=== PATIENT | male | born 1950 | race Caucasian/White ===

== ENCOUNTER 2017-12-25 10:44 | Observation (INO) | payer BC, MEDICARE ==
[2017-12-25] MEDS ORDERED: Loratadine 10 MG TAB PO PRN (13:41)
[2017-12-25] MEDS ORDERED: Senokot 8.6 MG TAB PO PRN (13:41)
[2017-12-25] MEDS ORDERED: Artificial Tear Sol 15 ML BOT EA EYE PRN (13:41)
[2017-12-25] MEDS ORDERED: Chloraseptic Spray 180 ml Bottle PO PRN (13:41)
[2017-12-25] MEDS ORDERED: hydrALAZINE 20 MG/ML VIAL SLOW IVP PRN (13:41)
[2017-12-25] MEDS ORDERED: Diabetic Tussin 200 MG/10 ML UDCUP PO PRN (13:41)
[2017-12-25] MEDS ORDERED: Eucerin (Mineral Oil/Petrolatum,White) 30 gm Jar TOP PRN (13:41)
[2017-12-25] MEDS ORDERED: HYDROcodone/Acetaminophen 5/325 mg Tablet PO PRN (13:41)
[2017-12-25] MEDS ORDERED: Zolpidem Tartrate 5 MG TAB PO PRN (13:41)
[2017-12-25] MEDS ORDERED: Ondansetron ODT 4 MG TAB PO PRN (13:41)
[2017-12-25] MEDS ORDERED: Mag-Al 1200 mg/1200 mg/30 ML UDCUP PO PRN (13:41)
[2017-12-25] MEDS ORDERED: Sodium Chloride 0.65% Nasal 44 ML BOT EA NARE PRN (13:41)
[2017-12-25] MEDS ORDERED: Milk Of Magnesia 30 ML UDCUP PO PRN (13:41)
[2017-12-25] MEDS ORDERED: Loperamide HCl 2 MG CAP PO PRN (13:41)
[2017-12-25] MEDS ORDERED: Ondansetron HCl/PF 4 MG/2 ML Vial IVP PRN (13:41)
[2017-12-25] MEDS ORDERED: Indomethacin 25 mg Capsule PO PRN (13:51)
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
[2017-12-25 16:37] VITALS: BMI 28.0
[2017-12-25] MEDS: Acetaminophen 325 MG TAB PO PRN ×2 (17:46→22:39)
[2017-12-25 17:51] LABS: Bilirubin Negative (Negative); Blood, Urine Negative (Negative); Clarity CLEAR (Clear); Glucose, Urine (Dipstick) Negative (Negative); Leukocyte Negative (Negative); Nitrite Negative (Negative); Protein, Urine (Dipstick) Negative (Neg-Trace); Specific Gravity, Urine 1.007 (1.002-1.036); Urobilinogen 0.2 mg/dL (0.2-1.0); pH, Urine 5.5 (5.0-9.0)
[2017-12-25 17:54] LABS: Bacteria/HPF None Seen HPF (None Seen); Hyaline Casts/LPF 0-3 HYALINE CAST LPF (0-3 Hyaline); RBC/HPF 0-3 HPF (0-3); Squamous Epithelial None Seen HPF (0-3); WBC/HPF None Seen HPF (0-3)
[2017-12-25 18:00] LABS: Amphetamine Not Detected (NotDetected); Barbiturates Screen Not Detected (NotDetected); Benzodiazepine Screen Not Detected (NotDetected); Cocaine Metabolite Screen Not Detected (NotDetected); Medtox Control Line Valid? VALID (VALID); Medtox Reader # READER 1; Methadone Not Detected (NotDetected); Methamphetamine Not Detected (NotDetected); Opiate Screen Not Detected (NotDetected); Oxycodone Screen Not Detected (NotDetected); Phencyclidine (PCP) Not Detected (NotDetected); THC/Cannabinoid Screen Not Detected (NotDetected); Tricyclic Screen Not Detected (NotDetected)
--- NOTE | 2017-12-25 19:17 | MRI ---
MRI OF BRAIN WITHOUT CONTRAST 12/25/17 Multiplanar and multisequential imaging of the brain obtained. INDICATIONS: TIA. Correlation made to CT brain done earlier today. Ventricles upper normal size. There is no evidence of restricted diffusion. No evidence of acute infa rct. No mass or edema. There are white matter hypointensities suggesting mild chronic ischemic white matter change. No evidence of hemorrhage. The visualized intracranial internal carotid arteries as well as proximal cerebral arteries show flow voids. Basilar artery appears patent. IMPRESSION: No acute process identified. No evidence of acute infarct. POS: YEIMY
[2017-12-25] MEDS ORDERED: Atorvastatin Calcium 40 MG TAB PO SCH (21:00)
[2017-12-25] MEDS: Famotidine 20 MG TAB PO SCH (22:24)
--- NOTE | 2017-12-26 00:17 | CON ---
CHIEF COMPLAINT: Possible transient ischemic attack. HISTORY OF PRESENT ILLNESS: Patient is a 67-year-old man who has had 4 episodes so far including this one. He usually feels confused and has difficulty speaking and apparently told the staff he told the physicians earlier that he was confused and difficulty with speaking and was stumbling with walking and this started yesterday morning and he went to the ER immediately and CT of the head was negative and he was transferred here for further level of care and each of these episodes last about an hour or so and he has full workup and he is usually told nothing else is wrong. He has been on aspirin. He also takes a lot of Excedrin for headaches. He has no history of any weakness, dizziness or numbness or loss of consciousness or vision problems. He has had 3 episodes in the past 2 years or so and each time, his workup was negative. patient does get a little anxious at times and he also has headaches. No cardiac issues or any other health problems were reported to me. PAST MEDICAL HISTORY: He is generally healthy except for history of having hypertension. He has hyperlipidemia, and prior TIAs as noted. PAST SURGICAL HISTORY: Left knee surgery, right shoulder lipoma repair and hernia repair. SOCIAL HISTORY: Drinks daily, former drug user, used cocaine, marijuana, methamphetamines in the past and along with LSD. He quit smoking more than 10 years ago. ALLERGIES: He is allergic to ZOLOFT. MEDICATIONS AT HOME: He takes indomethacin, atorvastatin, lisinopril, multivitamin. REVIEW OF SYSTEMS: Pulmonary: Normal. Cardiovascular: No chest pain. Gastrointestinal: Mild tenderness in the left lower quadrant, which is resolved. Genitourinary: Negative for dysuria or any increased frequency of urination. Neurologic: Positive for slurred speech and gait problems which are transient, also positive for headaches. Dermatologic: Normal. Endocrine: Normal. IMAGING: His workup so far MRI scan of the brain was completed and it is negative for any acute infarct and there are white matter hypointensities suggesting mild chronic microvascular ischemic changes. LABORATORY DATA: Urine is clear, negative. Urine tox screen is also negative and white count is 8.2, hemoglobin 14.3, hematocrit 43.4, platelets 148. PT is 127. INR 0.9, PTT 25.4. Sodium 141, potassium 4.3, chloride 106, BUN is 18, creatinine 0.81. PHYSICAL EXAMINATION: VITAL SIGNS: Blood pressure 136/77, temperature is 97.4, pulse 64, respiratory rate 16, O2 sats 94. GENERAL APPEARANCE: Well-built, well-nourished gentleman. CHEST: Clear vesicular breathing. CARDIOVASCULAR: S1, S2 heard, no murmurs. ABDOMEN: Soft, nontender, no organomegaly is noted. NEUROLOGICAL: Higher intellectual functions, normal. Orientation to time, place and person. Cranial nerves and appropriate conversation. Cranial nerves II-XII, normal fundus, exam normal pupillary reaction, normal extraocular movements, normal sensation of face bilaterally. No facial asymmetry. Tongue midline, no atrophy noted. Motor: Bulk normal, tone normal, strength 5/5 in upper and lower extremities. Sensory: Decreased touch and vibration distally in lower extremities, otherwise normal to touch, pinprick, proprioception and vibration bilaterally. Cerebellar: Normal [id number]-ildy [id number]. IMPRESSION: Patient is a 67-year-old man with frequent headaches and also unusual TIA like symptoms which happen intermittently and he has had 4 episodes so far and there are described as having acute confusion along with difficulty speaking, loss, difficulty walking. All these are transient last an hour or so and they completely subside and he has had extensive workup including MRIs in the past. At this time, his neurological examination is normal. Differential diagnosis includes transient elevations of blood pressure with a hypertensive encephalopathy versus possible migraine variant given that his MRI is normal for any acute event. RECOMMENDATIONS: 1. He has had high blood pressure per patient. Therefore, he can see water rights specialist as an outpatient. 2. Please complete his carotid Doppler and echocardiogram and if all is normal , he can be discharged home with aspirin plus Plavix. Please request patient to see Dr. Jean as an outpatient for followup. CHANTAL
[2017-12-26 05:14] LABS: Anion Gap 12 mmol/L (10-20); BUN (Urea Nitrogen) 17 mg/dL (8.4-25.7); Calc. Creatinine Clearance 114 mL/min (70-130); Calcium 9.5 mg/dL (7.8-10.44); Carbon Dioxide 27 mmol/L (23-31); Cardiac Risk 2.1 (Less than 4.5); Chloride 107 mmol/L (98-107); Cholesterol 123 mg/dl (< 200 Desired); Estimated GFR-MDRD Greater than 90; Glucose 98 mg/dL (80-115); HDL Cholesterol 60 mg/dL (>60 Neg Risk); LDL Cholesterol, Calculated 49 mg/dL; Potassium 4.2 mmol/L (3.5-5.1); Sodium 142 mmol/L (136-145); Triglycerides 71 mg/dL (Less than 150)
[2017-12-26 06:56] LABS: #Basophils 0.1 thou/uL (0.0-0.2); #Eosinphils 0.1 thou/uL (0.0-0.7); #Lymphocytes 1.9 thou/uL (1.20-3.40); #Monocytes 0.7 thou/uL (0.11-0.59); #Neutrophils 3.9 thou/uL (1.40-6.50); %Eosinophils 1.8 % (0.0-10.0); %Lymphocytes 28.1 % (21.0-51.0); %Monocytes 10.7 % (0.0-10.0); %Neutrophils 58.4 % (42.0-75.0); Hemoglobin 13.6 g/dL (14.0-18.0); Mean Corpuscular HGB CONC 34.4 g/dL (32.0-36.0); Mean Corpuscular Hemoglobin 34.8 pg (27.0-31.0); Mean Platelet Volume 10.7 fL (7.4-10.4); PLT Morphology Comment Appears Decreased; Platelet Count 118 thou/uL (130-400); Red Blood Cell (RBC) Count 3.91 mill/uL (4.70-6.10); White Blood Cell (WBC) Count 6.7 thou/uL (4.8-10.8)
[2017-12-26] MEDS ORDERED: Cyanocobalamin (Vitamin B-12) 1,000 MCG TAB PO SCH (09:00)
[2017-12-26] MEDS ORDERED: Aspirin 81 mg Enteric Coated Tablet PO SCH (09:00)
[2017-12-26] MEDS ORDERED: Folic Acid 1 MG TAB PO SCH (09:00)
[2017-12-26] MEDS ORDERED: Lisinopril 5 MG TAB PO SCH (09:00)
[2017-12-26] MEDS ORDERED: Multivitamin W/ Minerals 1 TAB PO SCH (09:00)
[2017-12-26] MEDS: Famotidine 20 MG TAB PO SCH (09:29)
[2017-12-26] MEDS: Acetaminophen 325 MG TAB PO PRN (09:39)
--- NOTE | 2017-12-26 10:21 | DIS ---
DATE OF ADMISSION: 12/25/2017 DATE OF DISCHARGE: 12/26/2017 PRIMARY CARE PHYSICIAN: [facility]. DISCHARGE DISPOSITION: Home. PRIMARY DISCHARGE DIAGNOSIS: Recurrent transient ischemic. SECONDARY DISCHARGE DIAGNOSES: Dyslipidemia, hypertension, macrocytic anemia, thrombocytopenia. PRIMARY PROCEDURE/OPERATION: None. RADIOLOGICAL INVESTIGATION: MRI brain is normal. Echocardiography official report is pending. Edwards tid Doppler official report is pending. SIGNIFICANT LABORATORY DATA: WBC 6.7, hemoglobin 13.6, platelet 118. Sodium 142, potassium 4.2, chl oride 107, carbon dioxide 27, anion gap 12, BUN 17, creatinine 0.81, glucose 98, calcium 9.5, triglyc erides 71, cholesterol 123, LDL 49, HDL 60, homocysteine 10.07. Urinalysis normal. Urine drug scree n negative. DISCHARGE MEDICATIONS: Aspirin 81 mg p.o. daily, Plavix 75 mg p.o. daily, Lipitor 40 mg p.o. daily, vitamin B12 1000 mcg p.o. daily, Pepcid 20 mg p.o. b.i.d., folic acid 1 mg p.o. daily, lisinopril 5 m g p.o. daily, multivitamin 1 tablet p.o. daily. CONTRAINDICATIONS: None. CODE STATUS: FULL CODE. INPATIENT CONSULTANTS: Dr. Ricardo Smith, neurologist was following while in hospital. TEST RESULTS PENDING ON DISCHARGE: By the time of dictation, carotid Doppler and echocardiography re sult is pending. ALLERGIES: ZOLOFT. DISCHARGE PLAN: Post hospital, patient is instructed to follow up with the [facility], primary care p paty and primary care physician requested to give follow up with Cardiology to evaluate him with Holter monitoring if needed as an outpatient basis. The patient is instructed to follow up with Dr. Kayleen Jean, neurologist after discharge. HOSPITAL COURSE: A 67-year-old male who was initially evaluated at [facility] where CT br ain which was negative for any acute process. He went there because he was feeling confusion. He wa s having difficulty speaking and he was having difficulty walking with stumbling and that is why next day, patient came to [facility] where CT brain was negative. Routine evaluation was nega tive. He was sent to our hospital for rule out cerebrovascular accident. The patient was observed o n the stroke floor. When he presented to emergency room in our hospital, at that time, he was comple tely normal. He had this type of 3 episodes in the past and he has been evaluated at a different [facility] p[facility] as well. At this time, we did MRI brain which was normal. We did carotid Doppler and echocard iography per Neurology recommendation. Neurology also consulted while in hospital and their differen tial was that it could be from hypertensive encephalopathy, transient versus migraine variant, but th ey recommended to continue aspirin and Plavix to add because of recurrent nature. Rest of medication was continued as per previous. As he has thrombocytopenia and macrocytosis, we added folic acid, vi tamin B12, and Theragran. All new medication prescription sent to his pharmacy. Today, the patient is seen and examined at bedside. PHYSICAL EXAMINATION: VITAL SIGNS: Currently, temperature 97.5, pulse 65, blood pressure 145/82, weight 207 pounds, satura tion 95%. GENERAL: Patient is alert, oriented x3. Cranial nerves II-XII intact. LUNGS: Clear to auscultation without any rhonchi or rales. CARDIAC: S1, S2 regular without any murmur. ABDOMEN: Soft and benign without any tenderness. EXTREMITIES: No edema. NEUROLOGIC: Normal examination completely. Telemetry remained unremarkable. REVIEW OF SYSTEMS: Negative. The patient is planned for discharge today.
--- NOTE | 2017-12-26 10:24 | ULT ---
CAROTID DUPLEX ULTRASOUND: INDICATION: Stroke evaluation. COMPARISON: None. FINDINGS: There is antegrade flow of both vertebral arteries. No hemodynamically significant stenosis is seen involving the internal carotid arteries. Peak systolic velocity of the right CCA was 76.6 cm/s and on the left was 61.4 cm/s. Peak systolic velocity in the right ICA was 67.1 cm/s and left ICA was 60.1 cm/s. Right ICA/CCA ratio is 0.88 and the left is 0.98. IMPRESSION: No hemodynamically significant stenosis. POS: YEIMY
[2017-12-26 11:41] VITALS: BP 131/79; TEMP 98.6
--- NOTE | 2017-12-26 13:19 | PRG ---
DATE OF SERVICE: 12/26/2017 CHIEF COMPLAINT: Possible transient ischemic attack. INTERVAL HISTORY: No new symptoms since yesterday and he has remained stable. His current workup, c arotid Dopplers shows no hemodynamically significant stenosis. Echocardiogram result is pending. PHYSICAL EXAMINATION: VITAL SIGNS: Blood pressure is 131/79, temperature 98.6, pulse is 62. NEUROLOGIC: He is alert, awake, oriented. No cranial nerve abnormalities. Normal strength. LABORATORY DATA AND IMAGING: His current lab work from today shows hemoglobin 13.6, hematocrit 39.5, white count 6.7, platelets 118. Homocysteine level is 10.07. Cholesterol and triglycerides are all within normal limits. I also reviewed electrolytes, which were within normal limits. Renal functio n is also within normal limits. His carotid Dopplers were negative. He is pending an echocardiogram . His examination is negative for any new abnormalities. At this time, I discussed with the patient and that he may be having a migraine variant and therefore he has these recurrent episodes. Hi s MRI is negative for any acute events. I advised him to see Dr. Jean as outpatient to explore this possibility again, and seek migraine treatment on a regular basis. IMPRESSION: The patient with alteration in his gait as well as mental status, which seems to occur i ntermittently as episodes and he has migraine headaches. He used to have migraine headaches in the p ast, but still continues to have headaches for which he takes Excedrin. RECOMMENDATIONS: Please call me if you have any further questions. Okay to discharge from neurology standpoint.
== END 2017-12-26 13:09 | disposition home or self-care (01) ==
LOC: ERS 10:44 → 2SE 13:15
PROVIDERS: ADMIT Internal Medicine; ATTEND Internal Medicine
DX: G45.9 Transient cerebral ischemic attack, unspecified (principal); I10 Essential (primary) hypertension; E78.5 Hyperlipidemia, unspecified; D53.9 Nutritional anemia, unspecified; D69.6 Thrombocytopenia, unspecified; Z87.891 Personal history of nicotine dependence; Z88.8 Allergy status to other drugs, medicaments and biological substances; Z79.82 Long term (current) use of aspirin; Z79.02 Long term (current) use of antithrombotics/antiplatelets; Z79.899 Other long term (current) drug therapy
CPT/HCPCS: 36415; 70551; 80048; 80061; 80306; 83090; 85025; 93306; 93880; 99285; A4216; G0378

== ENCOUNTER 2018-07-15 11:14 | Emergency (ER) | payer MEDICARE, BC ==
[2018-07-15 11:48] LABS: #Eosinphils 0.1 thou/uL (0.0-0.7); #Lymphocytes 1.9 thou/uL (1.20-3.40); #Monocytes 0.9 thou/uL (0.11-0.59); #Neutrophils 5.8 thou/uL (1.40-6.50); %Basophils 0.1 % (0.0-1.0); %Eosinophils 1.2 % (0.0-10.0); %Lymphocytes 21.5 % (21.0-51.0); %Monocytes 9.8 % (0.0-10.0); %Neutrophils 67.4 % (42.0-75.0); Hemoglobin 15.7 g/dL (14.0-18.0); Mean Corpuscular Hemoglobin 33.8 pg (27.0-31.0); Mean Platelet Volume 10.7 fL (7.4-10.4); Platelet Count 137 thou/uL (130-400); RBC Distribution Width 11.9 % (11.5-14.5); Red Blood Cell (RBC) Count 4.64 mill/uL (4.70-6.10); White Blood Cell (WBC) Count 8.7 thou/uL (4.8-10.8)
[2018-07-15] MEDS ORDERED: Lorazepam 2 MG/ML VIAL ONE (12:13)
[2018-07-15 12:15] LABS: ALT (SGPT) 17 U/L (8-55); AST (SGOT) 19 U/L (5-34); Albumin 4.6 g/dL (3.4-4.8); Alkaline Phosphatase 72 U/L (40-150); Anion Gap 14 mmol/L (10-20); BUN (Urea Nitrogen) 16 mg/dL (8.4-25.7); Bilirubin, Total 1.1 mg/dL (0.2-1.2); Calc. Creatinine Clearance 0 mL/min (70-130); Carbon Dioxide 27 mmol/L (23-31); Chloride 104 mmol/L (98-107); Estimated GFR-MDRD 78; Globulin 3.6 g/dL (2.4-3.5); Glucose 106 mg/dL (80-115); Potassium 4.7 mmol/L (3.5-5.1); Protein, Total 8.2 g/dL (5.8-8.1); Sodium 140 mmol/L (136-145)
--- NOTE | 2018-07-15 12:24 | CT ---
CT BRAIN NONCONTRAST: DATE: 07-15-18 HISTORY: 67-year-old male with tremors and convulsions. FINDINGS: There is no midline shift or any other mass effect. There is no evidence of acute intracranial hemor rhage, large cortical infarct, obstructive hydrocephalus, or extraaxial fluid collection. The calvar ium is intact. IMPRESSION: No acute intracranial findings. sunny POS: David
--- NOTE | 2018-07-17 15:16 | EKG ---
Test Reason : ER INDICATION Blood Pressure : / mmHG Vent. Rate : 075 BPM Atrial Rate : 075 BPM P-R Int : 184 ms QRS Dur : 078 ms QT Int : 384 ms P-R-T Axes : 027 008 053 degrees QTc Int : 428 ms Sinus rhythm Normal ECG Confirmed by KVNG PAGAN, KELLY Maier ([id number]), pictures editor ANJELICA DELATORRE ([id number]) on 07/17/2018 3:16:31 PM Referred By: Confirmed By:KELLY CALDERON MD
== END 2018-07-15 12:31 | disposition home or self-care (01) ==
LOC: ERS 11:14
DX: R25.1 Tremor, unspecified (principal); E78.5 Hyperlipidemia, unspecified; I10 Essential (primary) hypertension; Z79.899 Other long term (current) drug therapy; Z86.73 Personal history of transient ischemic attack (TIA), and cerebral infarction without residual deficits
CPT/HCPCS: 36416; 70450; 80053; 85025; 93005; 96374; J2060

== ENCOUNTER 2018-10-18 14:19 | Observation (INO) | payer BC, MEDICARE ==
--- NOTE | 2018-10-18 15:06 | PDOC.FPRHP ---
- History of Present Illness Chief Complaint: Right handed weakness History of Present Illness: This is a 68 yo male with a pmh of HTN and recent GI bleed who presents to the ED with a cc of TIA like symptoms. He reports a history of 5 TIAs in the past. He states he started having decreased right hand strength and facial drooping at 1230 today. He states he has slurred speech as well. His reports this was the worst TIA he has had. Since arriving to the ED, he has had improved symptoms but reports some difficulty with words. He reports recently he was diagnosed with a gastric ulcer one week ago. He had the ulcer cauterized and has been started on protonix and was take off his aspirin and plavix for TIA/CVA prophylaxis. ED Course: gave aspirin [employer] - Allergies/Adverse Reactions Allergies Allergy/AdvReac Type Severity Reaction Status Date / Time sertraline [From Zoloft] Allergy Unverified 12/25/17 13:43 - Home Medications Medication Instructions Recorded Confirmed Type Lisinopril 5 mg PO DAILY 12/25/17 10/18/18 History Gabapentin 300 mg PO BID 10/18/18 10/18/18 History Pantoprazole [Protonix] 40 mg PO DAILY 10/18/18 10/18/18 History - History PMHx: Recurrent TIA, HTN PSHx: Hernia, lipoma, left knee surgery, EGD FHx: Noncontributory Social: Denies JERRY, 20 - Review of Systems General: denies: fever/chills Eyes: denies: eye pain, vision changes ENT: denies: nasal congestion, rhinorrhea Respiratory: denies: cough, shortness of breath Cardiovascular: denies: chest pain, palpitation Gastrointestinal: denies: nausea, vomiting, GI bleeding (Reports his dark stool has resolved since the cauterization of the ulcer) Skin: denies: rashes, lesions Musculoskeletal: reports: pain, tenderness, stiffness Neurological: reports: weakness. denies: numbness, syncope Psychological: denies: anxiety, depression - Vital signs BP: 104/67 HR: 74 RR: 16 Tmax: 97.5 Pox: 98% on ra Wt: 96 kg - Physical Exam Constitutional: NAD, awake, alert and oriented, well developed HEENT: normocephalic and atraumatic, PERRLA, EOMI, MMM Neck: FROM, trachea midline, no JVD, no bruits Chest: no-tender to palpation Heart: RRR, normal S1/S2, no murmurs/rubs/gallops, pulses present Lungs: CTAB, no respiratory distress, good air movement, no wheezing Abdomen: soft, non-tender, bowel sounds present, no masses/distention Musculoskeletal: normal tone, ROM grossly normal Neurological: no focal deficit, CN II-XII intact, normal sensation, other ( Slurred speech per , near baseline) Skin: no rash/lesions, good turgor, capillary refill <2 seconds Heme/Lymphatic: no unusual bruising or bleeding, no purpura, no petechia Psychiatric: normal mood and affect, good judgment and insight, intact recent and remote memory FMR H&P: Results - Labs Lab results: WBC 8.0 Hgb 9.3 Hct 28.8 MCV 100.0 RDW 13.7 Plt 206 Na 143 K 4.3 Cl 106 Bicarb 26 Bun 20 Cr 0.85 GFR 89 Glucose 112 - Radiology Interpretation CT scan - head Status: report reviewed by me (No acute intracranial findings) FMR H&P: A/P - Problem List (1) Hx of gastric ulcer Current Visit: Yes Status: Acute Code(s): Z87.19 - PERSONAL HISTORY OF OTHER DISEASES OF THE DIGESTIVE SYSTEM (2) TIA (transient ischemic attack) Current Visit: No Status: Acute Code(s): G45.9 - TRANSIENT CEREBRAL ISCHEMIC ATTACK, UNSPECIFIED (3) Dyslipidemia Current Visit: No Status: Chronic Code(s): E78.5 - HYPERLIPIDEMIA, UNSPECIFIED - Plan This is a 68 yo male with a pmh of HTN and recent GI bleed TIA vs. CVA -Admit to stroke obs -CT negative, received contrast without CT 2/2 machine breaking -NIH6-->0 over 4 hours -MRA head and neck tomorrow -Echo tomorrow -FLP in the AM, will start statin if warranted -[facility] Anemia 2/2 recent GI bleed vs. macrocytic causes -Repeat CBC in the AM -B12/ RBC folate -Start iron supplements -Avoid anticoagulation and platelet therapy Hx of TIA -Restart aspirin 81mg after hospitalization Ankle pain -Gabapentin HTN -Lisinopril Code: Full Prophylaxis: protonix, SCDs Family: at bedside Diet: PCP: Dr. Nicole [place] Disposition: home in 1-2 days FMR H&P: Upper Level - Pertinent history HPI Pt is a 68 y/o M [place] patient with hx/o TIA presenting for Hand weakness. Started this AM with associated facial droop, slurred speech per . Sx have now resolved and pt is back to baseline other than mild speech abnormalities. Pt was given contrast outpatient today, but CT scanner was broken and pt was transferred. - Plan Date/Time: 10/18/18 1506 IBoni, have evaluated this patient and agree with findings/plan as outlined by program management intern resident. Pertinent changes/additions are listed here. PHYSICAL EXAMINATION: General: NAD, alert and oriented x3 HEENT: PERRLA, EOMI, normal sclera, oropharynx without erythema or exudate Neck: Supple. Full ROM. Heart/Cardiovascular System: No r/m/g. RRR. Cap refill < 3 seconds, good pulses in all extremities Lungs/Respiratory System: clear to auscultation bilaterally. No increased work of breathing. Room air. Abdomen/Gastro-Intestinal System: non-tender, normal bowel sounds, no masses, no organomegaly Extremities: Warm extremities. No cyanosis or edema. Neuro: No gross deficits appreciated. CN 2-12 grossly intact. Articulates well. Psychiatry: Awake, Alert and cooperative with exam Skin: No lesions, rashes, or ulcers PROBLEM LISTANDPLAN: # R/o TIA- Pt with negative CT, and now resolved symptoms. Pt did receive uncertain amount of contrast at OSH, but did not receive CTA Head/Neck and will plan for MRI/MRA tomorrow especially since this is a re-occurring problem. Monitor on Stroke unit with regular neuro checks. Of note, pt did have GI bleed 1w ago and did stop ASA/Plavix. Continue Statin(Consider maximizing) # Macrocytic Anemia- Recent hx/o last week of GI bleed 2/2 gastric ulcers. No evidence of acute bleed. Will trend H/H during stay and monitor closely. Will check records of previous w/u for macrocytosis. On PPI daily # HTN: Continue lisinopril # Hx/o Leukemia- Now in remission.
[2018-10-18 15:56] LABS: Troponin I Less than 0.010 ng/mL (< 0.028)
[2018-10-18] MEDS ORDERED: Ondansetron ODT 4 MG TAB SL PRN (16:51)
[2018-10-18] MEDS ORDERED: Acetaminophen 325 MG TAB PO PRN ×2 (16:51→16:59)
[2018-10-18] MEDS ORDERED: Ondansetron PF 4 MG/2 ML Vial IVP PRN ×2 (16:51→16:59)
[2018-10-18] MEDS ORDERED: Ondansetron ODT 4 MG TAB PO PRN (16:59)
[2018-10-18 17:08] VITALS: BMI 29.2
[2018-10-18 17:55] LABS: Troponin I Less than 0.010 ng/mL (< 0.028)
[2018-10-18] MEDS: Gabapentin 300 MG CAP PO SCH (20:48)
[2018-10-19 05:43] LABS: #Eosinphils 0.1 thou/uL (0.0-0.7); #Lymphocytes 1.6 thou/uL (1.20-3.40); #Monocytes 0.8 thou/uL (0.11-0.59); %Basophils 0.7 % (0.0-1.0); %Eosinophils 2.1 % (0.0-10.0); %Lymphocytes 24.6 % (21.0-51.0); %Monocytes 11.5 % (0.0-10.0); %Neutrophils 61.1 % (42.0-75.0); Mean Corpuscular HGB CONC 32.8 g/dL (32.0-36.0); Mean Corpuscular Hemoglobin 33.4 pg (27.0-31.0); Mean Platelet Volume 9.9 fL (7.4-10.4); Platelet Count 191 thou/uL (130-400); RBC Distribution Width 13.3 % (11.5-14.5); Red Blood Cell (RBC) Count 2.68 mill/uL (4.70-6.10); White Blood Cell (WBC) Count 6.6 thou/uL (4.8-10.8)
--- NOTE | 2018-10-19 06:24 | PDOC.FM ---
- Subjective Subjective: Pt did well overnight. No further worsening of symptoms. reports speech is improving. - Objective MAR Reviewed: Yes Vital Signs & Weight: Vital Signs (12 hours) Temp Pulse Resp BP Pulse Ox 10/19/18 04:00 98.1 F 77 19 115/71 98 10/18/18 23:20 98.1 F 65 16 111/70 97 10/18/18 19:24 98.5 F 76 16 112/59 L 96 Weight Weight 97.636 kg Result Diagrams: 10/19/18 04:17 10/19/18 04:17 Phys Exam - Physical Examination Constitutional: NAD HEENT: moist MMs Neck: no JVD Respiratory: no wheezing, clear to auscultation bilateral Cardiovascular: RRR, no significant murmur Gastrointestinal: soft, non-tender, no distention, positive bowel sounds Musculoskeletal: no edema, pulses present Neurological: non-focal, normal sensation, moves all 4 limbs Speed of speech improving Psychiatric: A&O x 3 Skin: cap refill <2 seconds Dx/Plan (1) Hx of gastric ulcer Code(s): Z87.19 - PERSONAL HISTORY OF OTHER DISEASES OF THE DIGESTIVE SYSTEM Status: Acute (2) TIA (transient ischemic attack) Code(s): G45.9 - TRANSIENT CEREBRAL ISCHEMIC ATTACK, UNSPECIFIED Status: Acute (3) Dyslipidemia Code(s): E78.5 - HYPERLIPIDEMIA, UNSPECIFIED Status: Chronic - Plan Plan: This is a 68 yo male with a pmh of HTN and recent GI bleed TIA vs. CVA -Admit to stroke obs -CT negative, received contrast without CT 2/2 machine breaking -NIH6-->0 over 4 hours -MRA head and neck tomorrow -Echo tomorrow -Requesting [place] records for previous imaging/workups Anemia 2/2 recent GI bleed vs. macrocytic causes -Repeat CBC shows Hbg 9.0 -B12/ RBC folate -Start iron supplements -Avoid anticoagulation and platelet therapy Hx of TIA -Restart aspirin 81mg after hospitalization Ankle pain -Gabapentin HTN -Lisinopril Addendum - Attending - Attending Attestation Date/Time: 10/19/18 0680 I personally evaluated the patient and discussed the management with Dr. Kuhn I agree with the History, Examination, Assessment and Plan documented above with any addition or exceptions noted below. [place] patient with recurrent TIA this episode with slurred right facial droopand arm paralysis deficit with resolution per patient 20 minutes after arrival to ER. [facility]. Recent cauterization bleeding gastric ulcer 10 days ago at [facility]. Patient to remain off antiplatelets until repeat EGD at earliest. MRA completed results pending. Rec statin therapy patient states mad myalgia in past. Disposition pending echocardiogram MRA results today. Clinical Neuro exam at baseline non focal. regard anemia Macrocytic indices under further evaluation recent GI bleed noted check RBC fotate and B12 level and peripheral smear.
[2018-10-19 07:43] LABS: Anion Gap 11 mmol/L (10-20); BUN (Urea Nitrogen) 16 mg/dL (8.4-25.7); Calc. Creatinine Clearance 120 mL/min (70-130); Calcium 9.3 mg/dL (7.8-10.44); Carbon Dioxide 26 mmol/L (23-31); Chloride 108 mmol/L (98-107); Estimated GFR-MDRD Greater than 90; Glucose 91 mg/dL (80-115); Potassium 4.3 mmol/L (3.5-5.1); Sodium 141 mmol/L (136-145)
[2018-10-19] MEDS: Lisinopril 5 MG TAB PO SCH (08:27)
[2018-10-19] MEDS: Gabapentin 300 MG CAP PO SCH ×2 (08:27→20:36)
[2018-10-19] MEDS: Ferrous Sulfate 325 MG TAB PO SCH ×2 (08:27→16:47)
[2018-10-19] MEDS ORDERED: Gadobenate Dimeglumine 529 MG/1 ML (20ML VIAL) ONE (08:45)
--- NOTE | 2018-10-19 12:03 | MRI ---
EXAM: MRA Angio Brain wo STANDARD, 3-D reconstructions are provided PROVIDED CLINICAL HISTORY: TIA COMPARISON: None FINDINGS: No focal stenosis or branch occlusion is seen involving the [place] of Card or vertebral basilar sys tem. Patent anterior communicating as well as patent posterior right communicating arteries are visualized. No aneurysm is seen within the limitations of the technique of this exam. IMPRESSION: No focal stenosis or branch occlusion is seen involving the [place] of Card or vertebrobasilar syste m.
--- NOTE | 2018-10-19 12:08 | MRI ---
EXAM: MRA Angio Neck W WO Con 3-D reconstructions of the neck are provided PROVIDED CLINICAL HISTORY: TIA COMPARISON: None FINDINGS: There is a normal arrangement of the great vessels at the aortic arch. There is motion seen at the [place] of the aortic arch, but the origin of the great vessels are patent. There are patent bilateral subclavian arteries as well as patent bilateral common carotid arteries. The bilateral internal carot id arteries are patent. There are codominant and patent bilateral vertebral arteries present. IMPRESSION: 1. Patent bilateral internal carotid arteries. 2. Patent bilateral vertebral arteries.
[2018-10-19] MEDS ORDERED: Fioricet 325/50/40 mg Tablet PO PRN (15:23)
--- NOTE | 2018-10-20 07:00 | PDOC.FM ---
- Subjective Subjective: states speech is back to baseline. No weakness overnight. Denies headache, chest pain, or nausea. He states that he also has twitches in his face that move down to his torso. He as been treated for this before at this hospital. - Objective MAR Reviewed: Yes Vital Signs & Weight: Vital Signs (12 hours) Temp Pulse Resp BP Pulse Ox 10/20/18 04:00 98.0 F 68 19 123/67 99 10/20/18 00:00 98.0 F 68 18 111/62 97 10/19/18 20:00 97.3 F L 61 19 149/85 H 96 Weight Weight 97.636 kg I&O: 10/18/18 10/19/18 10/20/18 06:59 06:59 06:59 Intake Total 300 Balance 300 Result Diagrams: 10/19/18 04:17 10/19/18 04:17 Phys Exam - Physical Examination Constitutional: NAD HEENT: moist MMs Neck: no JVD Nonlabored breathing, equal chest rise Dry, pink skin Neurological: non-focal, normal sensation, moves all 4 limbs Psychiatric: normal affect, A&O x 3 Skin: cap refill <2 seconds Dx/Plan (1) Hx of gastric ulcer Code(s): Z87.19 - PERSONAL HISTORY OF OTHER DISEASES OF THE DIGESTIVE SYSTEM Status: Acute (2) TIA (transient ischemic attack) Code(s): G45.9 - TRANSIENT CEREBRAL ISCHEMIC ATTACK, UNSPECIFIED Status: Acute (3) Dyslipidemia Code(s): E78.5 - HYPERLIPIDEMIA, UNSPECIFIED Status: Chronic - Plan Plan: This is a 68 yo male with a pmh of HTN and recent GI bleed TIA vs. CVA -Admit to stroke obs -CT negative, received contrast without CT 2/2 machine breaking -NIH6-->0 over 4 hours -MRA head and neck negative -Pending MRI today -Echo LVEF 55-60% -[facility]workups Anemia 2/2 recent GI bleed vs. macrocytic causes -Repeat CBC shows Hbg 9.0 -B12/ RBC folate -Start iron supplements -Avoid anticoagulation and platelet therapy Hx of TIA -Restart aspirin 81mg after hospitalization Ankle pain -Gabapentin HTN -Lisinopril Addendum - Attending - Attending Attestation Date/Time: 10/20/18 1219 I personally evaluated the patient and discussed the management with Dr. Kuhn I agree with the History, Examination, Assessment and Plan documented above with any addition or exceptions noted below. need to consider tia/CVA mimicks such as seizure disorder (partial complex), migraine variant, no imaging evidence space occupying lesion(abscess mass) or anuersym. MRI this AM should be able to dismiss pending report and outpatient f/u with neurologist. F/U B12 and folate regard macrocytosis. Recent GI bleed (H/H stable and hemodynamically stable) secondary to gastric ulcer would not recommend hold ASA/Plavix at least until f/u endoscopy with evidence of healing.
[2018-10-20] MEDS: Ferrous Sulfate 325 MG TAB PO SCH (08:54)
[2018-10-20] MEDS: Gabapentin 300 MG CAP PO SCH (08:55)
[2018-10-20] MEDS: Lisinopril 5 MG TAB PO SCH (08:55)
[2018-10-20] MEDS ORDERED: Aspirin 81 mg Enteric Coated Tablet PO SCH (09:00)
--- NOTE | 2018-10-20 13:19 | MRI ---
MRI BRAIN WITHOUT CONTRAST: Date: 10/20/18 HISTORY: TIA. COMPARISON: MRI brain dated 12/25/17. CORRELATION: CT brain of previous day. FINDINGS: No restricted diffusion is seen. A few white matter T2 hyperintensities suggesting mild chronic small vessel ischemic disease are again seen. No evidence of infarct, hemorrhage, midline shift, or abnorm al extra-axial fluid collections are seen. The ventricular size is appropriate and the basilar cister ns are patent. The visualized paranasal sinuses and mastoid air cells are well aerated. IMPRESSION: No evidence of acute intracranial process. POS: TPC
[2018-10-20 14:11] LABS: Folate,Hemolysate 347.7 ng/mL (Not Estab.); Hematocrit 28.3 % (37.5-51.0); RBC Folate Test Component 1229 ng/mL (>498)
[2018-10-20 15:48] VITALS: BP 106/62; TEMP 98.3
--- NOTE | 2018-10-21 13:00 | DIS ---
DATE OF ADMISSION: 10/18/2018 DATE OF DISCHARGE: 10/20/2018 ADMITTING ATTENDING: Russel Sánchez MD DISCHARGE ATTENDING: Russel Sánchez MD RESIDENT: Elvin Kuhn DO CONSULTS: None. PROCEDURES: 1. Brain MRI without contrast shows no evidence of acute intracranial process. 2. MRA of neck shows patent bilateral internal carotid arteries and patent bilateral internal vertebral arteries. 3. MRA of brain shows no focal stenosis or branch occlusion seen involving the [place] of Card or the vertebrobasilar system. 4. Echocardiogram shows ventricle in normal size. EF of 60% to 65%. Aortic valve calcified, but no stenosis. PRIMARY DIAGNOSES: 1. Transient ischemic attack versus complex migraine, anemia secondary to recent gastrointestinal bleed versus microcytic causes. 2. History of transient ischemic attacks. 3. Ankle pain. 4. Hypertension. DISCHARGE MEDICATIONS: 1. Aspirin 81 mg. 2. Ferrous sulfate 325 mg p.o. b.i.d. 3. Protonix 40 mg p.o. daily. 4. Rosuvastatin 5 mg p.o. daily. 5. CoQ10 of 100 mg p.o. daily. 6. Percocet 1 tablet q.4 hours p.r.n. headache. 7. Gabapentin 300 mg p.o. b.i.d. 8. Lisinopril 5 mg p.o. daily. DISCONTINUED MEDICATIONS: Plavix 75 mg p.o. daily. HISTORY OF PRESENT ILLNESS/HOSPITAL COURSE: This is a 68-year-old male with past medical history of hypertension, recent GI bleed, who presents to the ED with chief complaint of TIA symptoms. He reports five previous TIAs in the past. Reports decreased strength in his right hand and facial drooping at 12:30 on the day of admission, he states he had slurred speech as well. His reports this is the worst TIA that he has had. The patient was admitted to the hospital, observed for 2 days during which time, the patient had no other symptoms and speech improved with time. The patient underwent MRI and MRA as stated above with no significant findings. The patient also reports he has had in the past some migration of numbness or shaking from his head down to his torso. The patient has headaches, although denies migraine headaches. Discharge diagnosis as above, this presumptive TIA versus complex migraine. The patient has multiple TIAs with no focal cause identifiable. I would consider bubble study for defect in heart septum and ventricle septum or atrial septum. Also recommended following up with his neurologist. At the time of discharge, the patient's disposition was stable. DISCHARGE INSTRUCTIONS: 1. Location: Home. 2. Diet: Heart healthy. 3. Activity: As tolerated. 4. Followup: [facility], as well as his neurologist as instructed. Job ID: [id number]
--- NOTE | 2018-10-23 16:05 | EKG ---
Test Reason : Blood Pressure : / mmHG Vent. Rate : 066 BPM Atrial Rate : 066 BPM P-R Int : 202 ms QRS Dur : 070 ms QT Int : 398 ms P-R-T Axes : 026 014 023 degrees QTc Int : 417 ms Normal sinus rhythm Normal ECG Confirmed by WILY ZHENG ([id number]), online content editor MOO HICKS ([id number]) on 10/23/2018 4:04:53 PM Referred By: Confirmed By:WILY ZHENG
== END 2018-10-20 15:52 | disposition home or self-care (01) ==
LOC: ERS 14:19 → 2SE 16:25
PROVIDERS: ADMIT Family Medicine; ATTEND Family Medicine
DX: R53.1 Weakness (principal); R29.810 Facial weakness; D64.9 Anemia, unspecified; M25.579 Pain in unspecified ankle and joints of unspecified foot; I10 Essential (primary) hypertension; E78.5 Hyperlipidemia, unspecified; Z85.6 Personal history of leukemia; Z86.73 Personal history of transient ischemic attack (TIA), and cerebral infarction without residual deficits; Z79.899 Other long term (current) drug therapy; Z88.8 Allergy status to other drugs, medicaments and biological substances
CPT/HCPCS: 36415; 36416; 70544; 70549; 70551; 80048; 80061; 82607; 82747; 84443; 85025; 93005; 93306; A9577; G0378